=== PATIENT | male | born 1955 | race Caucasian/White ===

== ENCOUNTER 2016-04-28 18:00 | Emergency (ER) | payer OTHER ==
[2016-04-28] MEDS ORDERED: Sodium Chloride 0.9% 2.5 ML Syringe FLUSH PRN (18:25)
[2016-04-28] MEDS ORDERED: Sodium Chloride 0.9% 10 ML Syringe FLUSH PRN (18:25)
[2016-04-28] MEDS ORDERED: Sodium Chloride 0.9% 1,000 ML IV ONE (18:25)
--- NOTE | 2016-04-28 18:31 | EDM.PDOC ---
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 for which he is currently on Coumadin and also has a cardiac pacemaker this pacemaker was checked several months prior he states he' s been therapeutic on his Coumadin with no complications he presents today with a left-sided pain that is in the anterior ribs of the mid axillary line near the thoracicoabdominal area he denies any trauma he states it started earlier today and got progressively worse and dull achy he states he does have some shortness of breath which seems related to the pain and with deep inspiration he does not recall any trauma he has not had a history of shingles and denies palpitations diaphoresis or other concern Review of systems: As per history of present illness and below otherwise all systems reviewed and negative. Past medical history: As per history of present illness and as reviewed below otherwise noncontributory. Surgical history: As per history of present illness and as reviewed below otherwise noncontributory. Social history: No reported history of drug or alcohol abuse. Family history: As per history of present illness and as reviewed below otherwise noncontributory. Physical exam: HEENT: Atraumatic, normocephalic, pupils reactive, negative for conjunctival pallor or scleral icterus, mucous membranes moist, throat clear, neck supple, nontender, trachea midline. Lungs: Clear to auscultation, breath sounds equal bilaterally, chest nontender. Heart: S1S2, regular, negative for clicks, rubs, or JVD. Abdomen: Soft, nondistended, nontender. Negative for masses or hepatosplenomegaly. Negative for costovertebral tenderness. Pelvis: Stable nontender. Genitourinary: Deferred. Rectal: Deferred. Extremities: Atraumatic, negative for cords or calf pain. Neurovascular unremarkable. Neuro: Awake, alert, oriented. Cranial nerves II through XII unremarkable. Cerebellum unremarkable. Motor and sensory unremarkable throughout. Exam nonfocal. Diagnostics: CBC CMP troponin PT INR CT chest abdomen and pelvis PE protocol EKG Therapeutics: IV O2 monitor Impression: #1 dyspnea #2 lower chest pain etiology to be determined #3 history of major fibrillation #4 history of pacemaker Definitive disposition and diagnosis as appropriate pending reevaluation and review of above. - Related Data Allergies/ADRs: Allergies Allergy/AdvReac Type Severity Reaction Status Date / Time No Known Allergies Allergy Verified 04/28/16 18:04 Home Meds: Home Meds Digoxin 0.25 mg PO DAILY 12/26/14 [History] Escitalopram [Lexapro] 10 mg PO DAILY 12/26/14 [History] Losartan [Cozaar] 100 mg PO DAILY 12/26/14 [History] Metoprolol Tartrate 50 mg PO BID 12/26/14 [History] atorvaSTATin [Lipitor] 10 mg PO BEDTIME 12/26/14 [History] oxyCODONE 10 mg PO Q6H PRN #25 tablet 12/30/14 [Rx] Albuterol [Proventil HFA] 1 puff PO DAILY PRN 04/28/16 [History] Aspirin [Adult Low Dose Aspirin EC] 81 mg PO DAILY 04/28/16 [History] Past Medical History HEENT History: Reports: Impaired vision Cardiovascular History: Reports: Afib, High cholesterol, Hypertension, Pacemaker , Prior cardiac arrest Other Cardiovascular History: 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) Respiratory History: Reports: COPD Gastrointestinal History: Reports: None Genitourinary History: Reports: None Neurological History: Reports: None Psychiatric History: Reports: None Endocrine/Metabolic History: Reports: None Hematologic History: Reports: None Immunologic History: Reports: None Oncologic (Cancer) History: Reports: None Dermatologic History: Reports: None - Infectious Disease History Infectious Disease History: Reports: Chicken pox, Measles - Past Surgical History Head Surgeries/Procedures: Reports: None Other Musculoskeletal Surgeries/Procedures:: Fractures right leg (1969) and left ankles (1977) Social & Family History - Family History Family Medical History: Noncontributory - Tobacco Use Smoking Status *Q: Current Every Day Smoker Years of Tobacco use: 45 Packs/Tins Daily: 0.4 Second Hand Smoke Exposure: Yes - Caffeine Use Caffeine Use: Reports: Coffee - Recreational Drug Use Recreational Drug Use: No Course - Vital Signs Last Recorded V/S: Last Vital Signs Temp 36.9 C 04/28/16 20:31 Pulse 95 03/02/17 20:31 Resp 16 04/28/16 20:31 BP 133/77 04/28/16 20:31 Pulse Ox 94 L 04/28/16 20:31 - Orders/Labs/Meds Orders: Active Orders 24 hr Category Date Time Status Cardiac Monitoring [RC] . DIRECTED Care 04/28/16 18:24 Active EKG Documentation Completion [RC] STAT Care 04/28/16 18:24 Active Abdomen Pelvis w Cont [CT] Stat Exams 04/28/16 18:25 Taken Ang Chest [CT] Stat Exams 04/28/16 18:25 Taken Sodium Chloride 0.9% [Saline Flush] Med 04/28/16 18:25 Active 10 ml FLUSH ASDIRECTED PRN Sodium Chloride 0.9% [Saline Flush] Med 04/28/16 18:25 Active 2.5 ml FLUSH ASDIRECTED PRN Saline Lock Insert [OM.PC] Stat Oth 04/28/16 18:24 Ordered Medication Orders Sodium Chloride (Saline Flush) 10 ml FLUSH ASDIRECTED PRN PRN Reason: Keep Vein Open Sodium Chloride (Saline Flush) 2.5 ml FLUSH ASDIRECTED PRN PRN Reason: Keep Vein Open Labs: Laboratory Tests 04/28/16 04/28/16 04/28/16 Range/Units 18:40 18:40 18:40 WBC 8.54 (4.0-11.0) K/uL RBC 4.43 L (4.50-5.90) M/uL Hgb 13.9 (13.0-17.0) g/dL Hct 42.5 (38.0-50.0) % MCV 95.9 (80.0-98.0) fL MCH 31.4 (27.0-32.0) pg MCHC 32.7 (31.0-37.0) g/dL RDW Std Deviation 46.9 (28.0-62.0) fl RDW Coeff of Nimco 13 (11.0-15.0) % Plt Count 161 (150-400) K/uL MPV 9.90 (7.40-12.00) fL Neut % (Auto) 67.5 (48.0-80.0) % Lymph % (Auto) 19.6 (16.0-40.0) % [place] % (Auto) 12.1 (0.0-15.0) % Eos % (Auto) 0.7 (0.0-7.0) % Baso % (Auto) 0.1 (0.0-1.5) % Neut # 5.8 H (1.4-5.7) K/uL Lymph # 1.7 (0.6-2.4) K/uL [place] # 1.0 H (0.0-0.8) K/uL Eos # 0.1 (0.0-0.7) K/uL Baso # 0.0 (0.0-0.1) K/uL Nucleated RBC % 0.0 /100WBC Nucleated RBCs # 0 K/uL INR 2.09 H (0.86-1.11) Sodium 138 (136-146) mmol/L Potassium 4.2 (3.5-5.1) mmol/L Chloride 103 (98-110) mmol/L Carbon Dioxide 26 (21-31) mmol/L BUN 15 (6.0-23.0) mg/dL Creatinine 0.9 (0.6-1.5) mg/dL Est Cr Clr Drug Dosing 98.94 mL/min Estimated GFR (MDRD) > 60.0 ml/min Glucose 97 (60-110) mg/dL Calcium 9.5 (8.8-10.8) mg/dL Total Bilirubin 0.6 (0.1-1.5) mg/dL AST 18 (5-40) IU/L ALT 14 (8-54) IU/L Alkaline Phosphatase 65 (40-150) Troponin I (0.0-0.29) NG/ML B-Natriuretic Peptide (<100) PG/ML Total Protein 7.6 (6.0-8.0) g/dL Albumin 4.2 (3.4-4.8) g/dL Globulin 3.4 (2.0-3.5) g/dL Albumin/Globulin Ratio 1.2 L (1.3-2.8) Lipase 40 (7-80) U/L Urine Color Urine Appearance Urine pH (5.0-8.0) Ur Specific [place] (1.001-1.035) Urine Protein (NEGATIVE) mg/dL Urine Glucose (UA) (NEGATIVE) mg/dL Urine Ketones (NEGATIVE) mg/dL Urine Occult Blood (NEGATIVE) Urine Nitrite (NEGATIVE) Urine Bilirubin (NEGATIVE) Urine Urobilinogen (<2.0) EU/dL Ur Leukocyte Esterase (NEGATIVE) Urine RBC (0-2/HPF) Urine WBC (0-5/HPF) Ur Epithelial Cells (NONE-FEW) Urine Bacteria (NEGATIVE) 04/28/16 04/28/16 04/28/16 Range/Units 18:40 18:40 20:35 WBC (4.0-11.0) K/uL RBC (4.50-5.90) M/uL Hgb (13.0-17.0) g/dL Hct (38.0-50.0) % MCV (80.0-98.0) fL MCH (27.0-32.0) pg MCHC (31.0-37.0) g/dL RDW Std Deviation (28.0-62.0) fl RDW Coeff of Nimco (11.0-15.0) % Plt Count (150-400) K/uL MPV (7.40-12.00) fL Neut % (Auto) (48.0-80.0) % Lymph % (Auto) (16.0-40.0) % [place] % (Auto) (0.0-15.0) % Eos % (Auto) (0.0-7.0) % Baso % (Auto) (0.0-1.5) % Neut # (1.4-5.7) K/uL Lymph # (0.6-2.4) K/uL [place] # (0.0-0.8) K/uL Eos # (0.0-0.7) K/uL Baso # (0.0-0.1) K/uL Nucleated RBC % /100WBC Nucleated RBCs # K/uL INR (0.86-1.11) Sodium (136-146) mmol/L Potassium (3.5-5.1) mmol/L Chloride (98-110) mmol/L Carbon Dioxide (21-31) mmol/L BUN (6.0-23.0) mg/dL Creatinine (0.6-1.5) mg/dL Est Cr Clr Drug Dosing mL/min Estimated GFR (MDRD) ml/min Glucose (60-110) mg/dL Calcium (8.8-10.8) mg/dL Total Bilirubin (0.1-1.5) mg/dL AST (5-40) IU/L ALT (8-54) IU/L Alkaline Phosphatase (40-150) Troponin I < 0.10 (0.0-0.29) NG/ML B-Natriuretic Peptide 44 (<100) PG/ML Total Protein (6.0-8.0) g/dL Albumin (3.4-4.8) g/dL Globulin (2.0-3.5) g/dL Albumin/Globulin Ratio (1.3-2.8) Lipase (7-80) U/L Urine Color YELLOW Urine Appearance CLEAR Urine pH 5.5 (5.0-8.0) Ur Specific [place] <= 1.005 (1.001-1.035) Urine Protein NEGATIVE (NEGATIVE) mg/dL Urine Glucose (UA) NEGATIVE (NEGATIVE) mg/dL Urine Ketones NEGATIVE (NEGATIVE) mg/dL Urine Occult Blood MODERATE (NEGATIVE) Urine Nitrite NEGATIVE (NEGATIVE) Urine Bilirubin NEGATIVE (NEGATIVE) Urine Urobilinogen 0.2 (<2.0) EU/dL Ur Leukocyte Esterase NEGATIVE (NEGATIVE) Urine RBC 1-3 (0-2/HPF) Urine WBC NONE SEEN (0-5/HPF) Ur Epithelial Cells RARE (NONE-FEW) Urine Bacteria FEW (NEGATIVE) Meds: Medications Generic Name Dose Route Start Last Admin Trade Name Freq PRN Reason Stop Dose Admin Sodium Chloride 10 ml 04/28/16 18:25 Saline Flush FLUSH ASDIRECTED PRN Keep Vein Open Sodium Chloride 2.5 ml 04/28/16 18:25 Saline Flush FLUSH ASDIRECTED PRN Keep Vein Open Discontinued Medications Generic Name Dose Route Start Last Admin Trade Name Freq PRN Reason Stop Dose Admin Sodium Chloride 1,000 mls @ 999 mls/hr 04/28/16 18:25 04/28/16 18:43 Normal Saline IV 04/28/16 19:25 999 mls/hr STAT ONE Administration Iopamidol 100 ml 04/28/16 19:31 04/28/16 19:32 Isovue-370 (76%) IVPUSH 04/28/16 19:32 100 ml ONETIME STA Administration Departure - Departure Disposition: Home, Self-Care 01 Clinical Impression: Muscle spasm Forms: ED Department Discharge Additional Instructions: Continue [id number] symptomatic therapy is discussed If blister rash does appear antiviral therapy would be indicated Return if symptoms persist or worsen or new concerning symptomatology develops Followup with primary care as scheduled or as needed The following information is given to patients seen in the emergency department who are being discharged to home. This information is to outline your options for follow-up care. We provide all patients seen in our emergency department with a follow-up referral. The need for follow-up, as well as the timing and circumstances, are variable depending upon the specifics of your emergency department visit. If you don't have a primary care physician on staff, we will provide you with a referral. We always advise you to contact your personal physician following an emergency department visit to inform them of the circumstance of the visit and for follow-up with them and/or the need for any referrals to a consulting specialist. The emergency department will also refer you to a specialist when appropriate. This referral assures that you have the opportunity for follow-up care with a specialist. All of these measure are taken in an effort to provide you with optimal care, which includes your follow-up. Under all circumstances we always encourage you to contact your private physician who remains a resource for coordinating your care. When calling for follow-up care, please make the office aware that this follow-up is from your recent emergency room visit. If for any reason you are refused follow-up, please contact the [facility] emergency department at and asked to speak to the emergency department charge nurse. <Schuyler Swan - Last Filed: 04/28/16 21:23> ED HISTORY OF PRESENT ILLNESS - General Source of Information: Reports: Patient - History of Present Illness INITIAL COMMENTS - FREE TEXT/NARRATIVE: Has seen and examined the patient agree with history and physical exam above, patient did have some pain on deep inspiration earlier today however this is resolved, symptoms are consistent with muscle spasm and/or possibly early shingles. I did discuss with patient if Heather or lesions develop he should return or followup with primary care granddaughter viral treatment. He declines any pain medication he prefers to treat himself with Tylenol. No fever nausea vomiting chills sweats no chest pain shortness breath headache dizziness or palpitation no bowel or urine symptoms at this time HEENT grossly within normal limits Chest clear throughout nontender CV regular rate and rhythm Abdomen soft nontender bowel sounds in all 4 quadrants Extremities full range of motion strength 5 out of 5 no edema [employer] alert nonfocal Lab as below CT imaging chest abdomen pelvis with contrast negative for acute process Assessment Muscle spasm Cannot rule out early zoster sequela Chronic history of baseline Plan Patient declined pain medications Continue Tylenol as needed Return if symptoms persist or worsen Followup with primary care as needed ED ROS GENERAL - Review of Systems Review Of Systems: ROS reveals no pertinent complaints other than HPI. ED EXAM, GENERAL - Physical Exam Exam: See Below Departure - Departure Time of Disposition: 21:22 Condition: good
[2016-04-28 19:20] LABS: CHLORIDE,CL 103 mmol/L (98-110); SODIUM,NA 138 mmol/L (136-146)
[2016-04-28] MEDS ORDERED: Iopamidol 755 Mg/ML 100 ML Bottle IVPUSH STA (19:31)
[2016-04-28 21:37] VITALS: BP 116/78
--- NOTE | 2016-04-29 14:43 | CT ---
EXAM DATE: 04/28/16 PATIENT'S AGE: 60 Patient: PUSHPA CALL Facility: [place], [place] Site . Site : 1955 Study: CT Chest Angio [id number]/2/2017 8:11:33 PM Ordering Physician: Doctor Cosby Final Report: INDICATION: Chest pain and shortness of breath. Abdominal pain. CT CHEST, ABDOMEN, AND PELVIS WITH CONTRAST TECHNIQUE: Multidetector CT imaging was performed through the chest, abdomen, and pelvis following intravenous contrast administration using 100 mL Isovue 370. Coronal and sagittal reconstructions were generated. COMPARISON: 12/28/2014 CT abdomen and pelvis. FINDINGS: Lungs and airways: Mild to moderate paraseptal and centrilobular upper lung emphysema. Moderate bibasilar lung atelectasis and/or scarring, left greater than right. Central airways are patent. No hilar lymphadenopathy. Pleura and pleural spaces: Trace left pleural effusion. Heart and mediastinum: Normal heart size. No significant pericardial effusion. Cardiac pacemaker. No mediastinal lymphadenopathy. Vascular structures: Evaluation for pulmonary emboli is limited by suboptimal opacification of the pulmonary arterial tree and respiratory motion. No definite large or central pulmonary emboli are demonstrated. Smaller PEs could go undetected. Normal caliber thoracic and abdominal aorta. Mild to moderate aortoiliac atherosclerotic calcifications are noted. Chest wall and axillae: No mass or axillary lymphadenopathy. Liver and spleen: Within normal limits. Gallbladder and bile ducts: Cholelithiasis. No biliary dilation identified. Pancreas, adrenals, and retroperitoneum: Resolution of previously seen left psoas hematoma. No pancreatic or adrenal mass. No pathologically enlarged lymph nodes identified in the abdomen or pelvis. Kidneys, ureters, and urinary bladder: Several small left renal cysts, similar to the previous exam. No suspicious renal masses or hydronephrosis. No bladder mass or definite wall thickening. Gastrointestinal tract and peritoneum: Normal caliber bowel without wall thickening. No evidence for appendicitis. No free air, abscess, or significant free fluid. Reproductive organs: Borderline prostatic enlargement. No pelvic masses. Bones: Chronic-appearing mild compression fracture of T8. Mild spinal degenerative changes. Moderate right hip DJD. IMPRESSION: 1. Limited evaluation for pulmonary emboli. No definite pulmonary emboli are identified. 2. Moderate bibasilar lung atelectasis and/or scarring and trace left pleural effusion. 3. Mild to moderate upper lung emphysema. 4. No definite acute intra-abdominal findings. 5. Nonacute findings as detailed above. SKYLAR BELTRAN MD [employer] Dictated by Adriel Beltran MD @ 04/28/2016 8:51:38 PM Dictated by: Adriel Beltran MD @ 04/28/2016 20:54:07 (Electronic Signature) Report Signed by Proxy and Original Signed Document filed in the Medical Record. MTDD
--- NOTE | 2016-04-29 14:44 | CT ---
EXAM DATE: 04/28/16 PATIENT'S AGE: 60 Patient: PUSHPA CALL Facility: [place], [place] Site . Site : 1955 Study: CT Abdomen/Pelvis [id number]/2/2017 8:16:09 PM Ordering Physician: Lindsey Sepulveda Final Report: INDICATION: Chest pain and shortness of breath. Abdominal pain. CT CHEST, ABDOMEN, AND PELVIS WITH CONTRAST TECHNIQUE: Multidetector CT imaging was performed through the chest, abdomen, and pelvis following intravenous contrast administration using 100 mL Isovue 370. Coronal and sagittal reconstructions were generated. COMPARISON: 12/28/2014 CT abdomen and pelvis. FINDINGS: Lungs and airways: Mild to moderate paraseptal and centrilobular upper lung emphysema. Moderate bibasilar lung atelectasis and/or scarring, left greater than right. Central airways are patent. No hilar lymphadenopathy. Pleura and pleural spaces: Trace left pleural effusion. Heart and mediastinum: Normal heart size. No significant pericardial effusion. Cardiac pacemaker. No mediastinal lymphadenopathy. Vascular structures: Evaluation for pulmonary emboli is limited by suboptimal opacification of the pulmonary arterial tree and respiratory motion. No definite large or central pulmonary emboli are demonstrated. Smaller PEs could go undetected. Normal caliber thoracic and abdominal aorta. Mild to moderate aortoiliac atherosclerotic calcifications are noted. Chest wall and axillae: No mass or axillary lymphadenopathy. Liver and spleen: Within normal limits. Gallbladder and bile ducts: Cholelithiasis. No biliary dilation identified. Pancreas, adrenals, and retroperitoneum: Resolution of previously seen left psoas hematoma. No pancreatic or adrenal mass. No pathologically enlarged lymph nodes identified in the abdomen or pelvis. Kidneys, ureters, and urinary bladder: Several small left renal cysts, similar to the previous exam. No suspicious renal masses or hydronephrosis. No bladder mass or definite wall thickening. Gastrointestinal tract and peritoneum: Normal caliber bowel without wall thickening. No evidence for appendicitis. No free air, abscess, or significant free fluid. Reproductive organs: Borderline prostatic enlargement. No pelvic masses. Bones: Chronic-appearing mild compression fracture of T8. Mild spinal degenerative changes. Moderate right hip DJD. IMPRESSION: 1. Limited evaluation for pulmonary emboli. No definite pulmonary emboli are identified. 2. Moderate bibasilar lung atelectasis and/or scarring and trace left pleural effusion. 3. Mild to moderate upper lung emphysema. 4. No definite acute intra-abdominal findings. 5. Nonacute findings as detailed above. SKYLAR BELTRAN MD [employer] [facility] [employer] Dictated by Adriel Beltran MD @ 04/28/2016 8:51:38 PM Dictated by: Adriel Beltran MD @ 04/28/2016 20:59:50 (Electronic Signature) Report Signed by Proxy and Original Signed Document filed in the Medical Record. MTDD
== END 2016-04-28 21:34 | disposition home or self-care (01) ==
LOC: MW.ED 18:00
DX: R07.89 Other chest pain (principal); M62.838 Other muscle spasm; I48.91 Unspecified atrial fibrillation; E78.00 Pure hypercholesterolemia, unspecified; I10 Essential (primary) hypertension; F17.210 Nicotine dependence, cigarettes, uncomplicated; Z79.82 Long term (current) use of aspirin; Z79.899 Other long term (current) drug therapy
CPT/HCPCS: 36415; 71275; 74177; 80053; 81001; 83690; 83880; 84484; 85025; 85610; 93005; 96360; 99285; J7040; Q9967; 99284

== ENCOUNTER 2017-08-14 19:42 | Emergency (ER) | payer OTHER ==
[2017-08-14] MEDS ORDERED: Ondansetron 4 MG/2 ML SDV IVPUSH ONE (19:51)
--- NOTE | 2017-08-14 19:52 | EDM.PDOC ---
ED HPI GENERAL MEDICAL PROBLEM - General Chief Complaint: Abdominal Pain Stated Complaint: ABDOMINAL PAIN Time Seen by Provider: 08/14/17 19:51 Source of Information: Reports: Patient - History of Present Illness INITIAL COMMENTS - FREE TEXT/NARRATIVE: HISTORY AND PHYSICAL: History of present illness: [patrient [resents w RLQ pain 8/10 increaseing in severity, pos f/n/v/c/s/ ] Review of systems: As per history of present illness and below otherwise all systems reviewed and negative. Past medical history: As per history of present illness and as reviewed below otherwise noncontributory. Surgical history: As per history of present illness and as reviewed below otherwise noncontributory. Social history: No reported history of drug or alcohol abuse. Family history: As per history of present illness and as reviewed below otherwise noncontributory. Physical exam: HEENT: Atraumatic, normocephalic, pupils reactive, negative for conjunctival pallor or scleral icterus, mucous membranes moist, throat clear, neck supple, nontender, trachea midline. Lungs: Clear to auscultation, breath sounds equal bilaterally, chest nontender. Heart: S1S2, regular, negative for clicks, rubs, or JVD. Abdomen: Soft, nondistended, nontender. Negative for masses or hepatosplenomegaly. Negative for costovertebral tenderness. Pelvis: Stable nontender. Genitourinary: Deferred. Rectal: Deferred. Extremities: Atraumatic, negative for cords or calf pain. Neurovascular unremarkable. Neuro: Awake, alert, oriented. Cranial nerves II through XII unremarkable. Cerebellum unremarkable. Motor and sensory unremarkable throughout. Exam nonfocal. Diagnostics: [CBC CMP troponin lipase UA blood cultures EKG Chest [address] abdomen pelvis with contrast ordered however GFR returned less than 60 radiology is recommending without contrast CT abdomen pelvis without contrast ordered secondary to above ] Therapeutics: [Saline 1 25 mL per hour Zofran 8 mg IV morphine 2 mg IV 1 g rocephine IV Impression: acute appe Definitive disposition and diagnosis as appropriate pending reevaluation and review of above. Abdomen Pain Score (Numeric/FACES): 10 - Related Data Allergies Allergy/AdvReac Type Severity Reaction Status Date / Time No Known Allergies Allergy Verified 08/14/17 19:53 Home Meds: Home Meds Digoxin 0.25 mg PO DAILY 12/26/14 [History] Escitalopram [Lexapro] 10 mg PO DAILY 12/26/14 [History] Losartan [Cozaar] 100 mg PO DAILY 12/26/14 [History] Metoprolol Tartrate 50 mg PO BID 12/26/14 [History] atorvaSTATin [Lipitor] 10 mg PO BEDTIME 12/26/14 [History] Albuterol [Proventil HFA] 1 puff PO DAILY PRN 04/28/16 [History] Aspirin [Adult Low Dose Aspirin EC] 81 mg PO DAILY 04/28/16 [History] Tiotropium Br/Olodaterol HCl [Stiolto Respimat Inhal [place]] 2 inhalation IH DAILY 08/14/17 [History] Warfarin Sodium 5 mg PO DAILY 08/14/17 [History] Past Medical History HEENT History: Reports: Impaired Vision Cardiovascular History: Reports: Afib, High Cholesterol, Hypertension, Pacemaker , Prior Cardiac Arrest Other Cardiovascular History: 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) Respiratory History: Reports: COPD Gastrointestinal History: Reports: None Genitourinary History: Reports: None Neurological History: Reports: None Psychiatric History: Reports: None Endocrine/Metabolic History: Reports: None Hematologic History: Reports: None Immunologic History: Reports: None Oncologic (Cancer) History: Reports: None Dermatologic History: Reports: None - Infectious Disease History Infectious Disease History: Reports: Chicken Pox, Measles - Past Surgical History Head Surgeries/Procedures: Reports: None Other Musculoskeletal Surgeries/Procedures:: Fractures right leg (1969) and left ankles (1977) Social & Family History - Family History Family Medical History: Noncontributory - Caffeine Use Caffeine Use: Reports: Coffee ED ROS GENERAL - Review of Systems Review Of Systems: See Below ED EXAM, GENERAL - Physical Exam Exam: See Below Course - Vital Signs Last Recorded V/S: Last Vital Signs Temp 96.5 F 08/14/17 19:49 Pulse 71 08/14/17 19:49 Resp 18 08/14/17 19:49 BP 108/74 08/14/17 19:49 Pulse Ox 94 L 08/14/17 19:49 - Orders/Labs/Meds Orders: Active Orders 24 hr Category Date Time Status EKG Documentation Completion [RC] STAT Care 08/14/17 20:07 Active Notify Provider Consults [RC] ASDIRECTED Care 08/14/17 22:08 Ordered Consult to Physician [CONS] Stat Cons 08/14/17 22:07 Ordered Abdomen Pelvis wo Cont [CT] Stat Exams 08/14/17 20:54 Taken CULTURE BLOOD [BC] Stat Lab 08/14/17 20:12 Received CULTURE BLOOD [BC] Stat Lab 08/14/17 20:31 Received UA W/MICROSCOPIC [URIN] Stat Lab 08/14/17 19:51 Ordered Sodium Chloride 0.9% [Normal Saline] 1,000 ml Med 08/14/17 20:00 Active IV STAT cefTRIAXone [Rocephin in Dextrose,Iso-Osm 1 GM/50 ML] 1 Med 08/14/17 21:55 Active gm Premix Bag 1 bag IV ONETIME Blood Culture x2 Reflex Set [OM.PC] Stat Oth 08/14/17 20:04 Ordered Medication Orders Sodium Chloride (Normal Saline) 1,000 mls @ 125 mls/hr IV STAT DEA Last Admin: 08/14/17 20:15 Dose: 125 mls/hr Ceftriaxone Sodium/Dextrose 1 (gm/ Premix) 50 mls @ 100 mls/hr IV ONETIME ONE Stop: 08/14/17 22:24 Last Admin: 08/14/17 22:03 Dose: 100 mls/hr Labs: Laboratory Tests 08/14/17 08/14/17 08/14/17 Range/Units 19:40 19:40 19:50 WBC 14.83 H (4.0-11.0) K/uL RBC 4.44 L (4.50-5.90) M/uL Hgb 14.4 (13.0-17.0) g/dL Hct 41.7 (38.0-50.0) % MCV 93.9 (80.0-98.0) fL MCH 32.4 H (27.0-32.0) pg MCHC 34.5 (31.0-37.0) g/dL RDW Std Deviation 44.9 (28.0-62.0) fl RDW Coeff of [place] 13 (11.0-15.0) % Plt Count 198 (150-400) K/uL MPV 9.50 (7.40-12.00) fL Neut % (Auto) 77.4 (48.0-80.0) % Lymph % (Auto) 14.8 L (16.0-40.0) % [place] % (Auto) 7.6 (0.0-15.0) % Eos % (Auto) 0.1 (0.0-7.0) % Baso % (Auto) 0.1 (0.0-1.5) % Neut # (Auto) 11.5 H (1.4-5.7) K/uL Lymph # (Auto) 2.2 (0.6-2.4) K/uL [place] # (Auto) 1.1 H (0.0-0.8) K/uL Eos # (Auto) 0.0 (0.0-0.7) K/uL Baso # (Auto) 0.0 (0.0-0.1) K/uL Nucleated RBC % 0.0 /100WBC Nucleated RBCs # 0 K/uL INR 3.57 Sodium 132 L (136-148) mmol/L Potassium 4.1 (3.5-5.1) mmol/L Chloride 95 L (98-107) mmol/L Carbon Dioxide 27.1 (21.0-32.0) mmol/L BUN 19 H (7.0-18.0) mg/dL Creatinine 1.3 (0.8-1.3) mg/dL Est Cr Clr Drug Dosing 55.25 mL/min Estimated GFR (MDRD) 55.6 ml/min Glucose 142 H (74-106) mg/dL Calcium 9.2 (8.5-10.1) mg/dL Total Bilirubin 0.6 (0.2-1.0) mg/dL AST 20 (15-37) IU/L ALT 16 (14-63) IU/L Alkaline Phosphatase 78 (46-116) U/L Troponin I < 0.050 (0.000-0.056) ng/mL Total Protein 7.6 (6.4-8.2) g/dL Albumin 3.7 (3.4-5.0) g/dL Globulin 3.9 H (2.0-3.5) g/dL Albumin/Globulin Ratio 1.0 L (1.3-2.8) Lipase 120 (73-393) U/L Meds: Medications Generic Name Dose Route Start Last Admin Trade Name Freq PRN Reason Stop Dose Admin Sodium Chloride 1,000 mls @ 125 mls/hr 08/14/17 20:00 08/14/17 20:15 Normal Saline IV 125 mls/hr STAT DEA Administration Ceftriaxone Sodium/Dextrose 1 50 mls @ 100 mls/hr 08/14/17 21:55 08/14/17 22: 03 gm/ Premix IV 08/14/17 22:24 100 mls/hr ONETIME ONE Administration Discontinued Medications Generic Name Dose Route Start Last Admin Trade Name John PRN Reason Stop Dose Admin Morphine Sulfate 2 mg 08/14/17 20:04 08/14/17 20:17 Morphine IVPUSH 08/14/17 20:05 2 mg ONETIME ONE Administration Ondansetron HCl 8 mg 08/14/17 19:51 08/14/17 20:15 Zofran IVPUSH 08/14/17 19:52 8 mg ONETIME ONE Administration Departure - Departure Time of Disposition: 22:09 Disposition: Still A Patient 30 Condition: Poor Clinical Impression: Acute appendicitis - Discharge Information Referrals: PCP,None [Primary Care Provider] - Forms: ED Department Discharge - My Orders Last 24 Hours: My Active Orders 08/14/17 19:51 UA W/MICROSCOPIC [URIN] Stat 08/14/17 20:00 Sodium Chloride 0.9% [Normal Saline] 1,000 ml IV STAT 08/14/17 20:04 Blood Culture x2 Reflex Set [OM.PC] Stat 08/14/17 20:07 EKG Documentation Completion [RC] STAT 08/14/17 20:12 CULTURE BLOOD [BC] Stat 08/14/17 20:31 CULTURE BLOOD [BC] Stat 08/14/17 20:54 Abdomen Pelvis wo Cont [CT] Stat 08/14/17 21:55 cefTRIAXone [Rocephin in Dextrose,Iso-Osm 1 GM/50 ML] 1 gm Premix Bag 1 bag IV ONETIME 08/14/17 22:07 Consult to Physician [CONS] Stat 08/14/17 22:08 Notify Provider Consults [RC] ASDIRECTED - Assessment/Plan Last 24 Hours: My Active Orders 08/14/17 19:51 UA W/MICROSCOPIC [URIN] Stat 08/14/17 20:00 Sodium Chloride 0.9% [Normal Saline] 1,000 ml IV STAT 08/14/17 20:04 Blood Culture x2 Reflex Set [OM.PC] Stat 08/14/17 20:07 EKG Documentation Completion [RC] STAT 08/14/17 20:12 CULTURE BLOOD [BC] Stat 08/14/17 20:31 CULTURE BLOOD [BC] Stat 08/14/17 20:54 Abdomen Pelvis wo Cont [CT] Stat 08/14/17 21:55 cefTRIAXone [Rocephin in Dextrose,Iso-Osm 1 GM/50 ML] 1 gm Premix Bag 1 bag IV ONETIME 08/14/17 22:07 Consult to Physician [CONS] Stat 08/14/17 22:08 Notify Provider Consults [RC] ASDIRECTED
[2017-08-14] MEDS ORDERED: Sodium Chloride 0.9% 1,000 ML IV SCH (20:00)
[2017-08-14] MEDS ORDERED: Morphine 2 MG/ML Syringe IVPUSH ONE (20:04)
[2017-08-14 20:29] LABS: CHLORIDE,CL 95 mmol/L (98-107); SODIUM,NA 132 mmol/L (136-148)
[2017-08-14] MEDS ORDERED: cefTRIAXone 1 GM in Premix Bag 1 BAG IV ONE (21:55)
[2017-08-14 22:20] VITALS: BP 145/62
[2017-08-14] MEDS ORDERED: Piperacillin/Tazobactam 3.375 GM in Sodium Chloride 0.9% 50 ML IV ONE (22:42)
--- NOTE | 2017-08-14 22:42 | PCM.CONS ---
H&P History of Present Illness - General Date of Service: 08/14/17 Source of Information: Patient History Limitations: Reports: No Limitations - History of Present Illness Initial Comments - Free Text/Narative: Patient is a 62 year old male with a PMHx significant for COPD(current 1 pk/day smoker), pacemaker/defibrillator with history of afib and ablation on coumadin who presented with 3 days of abdominal pain. He states that the pain became more severe today and was located in the lower abdomen. He then developed nausea and vomiting. He presented to the ED and WBC was 14K. CT abdomen pelvis showed acute appendicitis with no evidence of rupture. His INR is 3.5. Abdomen Pain Score (Numeric/FACES): 10 - Related Data Allergies/Adverse Reactions: Allergies Allergy/AdvReac Type Severity Reaction Status Date / Time No Known Allergies Allergy Verified 08/14/17 19:53 Home Medications: Home Meds Digoxin 0.25 mg PO DAILY 12/26/14 [History] Escitalopram [Lexapro] 10 mg PO DAILY 12/26/14 [History] Losartan [Cozaar] 100 mg PO DAILY 12/26/14 [History] Metoprolol Tartrate 50 mg PO BID 12/26/14 [History] atorvaSTATin [Lipitor] 10 mg PO BEDTIME 12/26/14 [History] Albuterol [Proventil HFA] 1 puff PO DAILY PRN 04/28/16 [History] Aspirin [Adult Low Dose Aspirin EC] 81 mg PO DAILY 04/28/16 [History] Tiotropium Br/Olodaterol HCl [Stiolto Respimat Inhal [place]] 2 inhalation IH DAILY 08/14/17 [History] Warfarin Sodium 5 mg PO DAILY 08/14/17 [History] Past Medical History HEENT History: Reports: Impaired Vision Cardiovascular History: Reports: Afib, High Cholesterol, Hypertension, Pacemaker , Prior Cardiac Arrest Other Cardiovascular History: 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) Respiratory History: Reports: COPD Gastrointestinal History: Reports: None Genitourinary History: Reports: None Neurological History: Reports: None Psychiatric History: Reports: None Endocrine/Metabolic History: Reports: None Hematologic History: Reports: None Immunologic History: Reports: None Oncologic (Cancer) History: Reports: None Dermatologic History: Reports: None - Infectious Disease History Infectious Disease History: Reports: Chicken Pox, Measles - Past Surgical History Head Surgeries/Procedures: Reports: None Other Musculoskeletal Surgeries/Procedures:: Fractures right leg (1969) and left ankles (1977) Social & Family History - Family History Family Medical History: Noncontributory - Tobacco Use Smoking Status *Q: Current Every Day Smoker Years of Tobacco use: 40 Packs/Tins Daily: 1 - Caffeine Use Caffeine Use: Reports: Coffee - Recreational Drug Use Recreational Drug Use: No H&P Review of Systems - Review of Systems: Review Of Systems: ROS reveals no pertinent complaints other than HPI. Exam - Exam Exam: See Below - Vital Signs Vital Signs: Last Vital Signs Temp 35.8 C 08/14/17 19:49 Pulse 71 08/14/17 19:49 Resp 19 08/14/17 22:00 BP 145/62 H 08/14/17 22:00 Pulse Ox 93 L 08/14/17 22:00 Weight: 68.039 kg - Exam General: Alert, Oriented, Mild Distress HEENT: Conjunctiva Clear, Posterior Pharynx Clear Neck: Supple, Trachea Midline Lungs: Clear to Auscultation, Normal Respiratory Effort Cardiovascular: Regular Rate, Regular Rhythm GI/Abdominal Exam: Soft, No Distention, No Mass, Guarding (RLQ), Rebound (RLQ), Tender (RLQ) - Patient Data Lab Results Last 24 hrs: Laboratory Results - last 24 hr 08/14/17 08/14/17 08/14/17 Range/Units 19:40 19:40 19:50 WBC 14.83 H (4.0-11.0) K/uL RBC 4.44 L (4.50-5.90) M/uL Hgb 14.4 (13.0-17.0) g/dL Hct 41.7 (38.0-50.0) % MCV 93.9 (80.0-98.0) fL MCH 32.4 H (27.0-32.0) pg MCHC 34.5 (31.0-37.0) g/dL RDW Std Deviation 44.9 (28.0-62.0) fl RDW Coeff of [place]co 13 (11.0-15.0) % Plt Count 198 (150-400) K/uL MPV 9.50 (7.40-12.00) fL Neut % (Auto) 77.4 (48.0-80.0) % Lymph % (Auto) 14.8 L (16.0-40.0) % [place] % (Auto) 7.6 (0.0-15.0) % Eos % (Auto) 0.1 (0.0-7.0) % Baso % (Auto) 0.1 (0.0-1.5) % Neut # (Auto) 11.5 H (1.4-5.7) K/uL Lymph # (Auto) 2.2 (0.6-2.4) K/uL [place] # (Auto) 1.1 H (0.0-0.8) K/uL Eos # (Auto) 0.0 (0.0-0.7) K/uL Baso # (Auto) 0.0 (0.0-0.1) K/uL Nucleated RBC % 0.0 /100WBC Nucleated RBCs # 0 K/uL INR 3.57 Sodium 132 L (136-148) mmol/L Potassium 4.1 (3.5-5.1) mmol/L Chloride 95 L (98-107) mmol/L Carbon Dioxide 27.1 (21.0-32.0) mmol/L BUN 19 H (7.0-18.0) mg/dL Creatinine 1.3 (0.8-1.3) mg/dL Est Cr Clr Drug Dosing 55.25 mL/min Estimated GFR (MDRD) 55.6 ml/min Glucose 142 H (74-106) mg/dL Calcium 9.2 (8.5-10.1) mg/dL Total Bilirubin 0.6 (0.2-1.0) mg/dL AST 20 (15-37) IU/L ALT 16 (14-63) IU/L Alkaline Phosphatase 78 (46-116) U/L Troponin I < 0.050 (0.000-0.056) ng/mL Total Protein 7.6 (6.4-8.2) g/dL Albumin 3.7 (3.4-5.0) g/dL Globulin 3.9 H (2.0-3.5) g/dL Albumin/Globulin Ratio 1.0 L (1.3-2.8) Lipase 120 (73-393) U/L Urine Color Urine Appearance Urine pH (5.0-8.0) Ur Specific [place] (1.001-1.035) Urine Protein (NEGATIVE) mg/dL Urine Glucose (UA) (NEGATIVE) mg/dL Urine Ketones (NEGATIVE) mg/dL Urine Occult Blood (NEGATIVE) Urine Nitrite (NEGATIVE) Urine Bilirubin (NEGATIVE) Urine Urobilinogen (<2.0) EU/dL Ur Leukocyte Esterase (NEGATIVE) Urine RBC (0-2/HPF) Urine WBC (0-5/HPF) Ur Epithelial Cells (NONE-FEW) Calcium Oxalate Crystal (NEGATIVE) Urine Bacteria (NEGATIVE) Urine Mucus (NONE-MOD) 08/14/17 Range/Units 20:30 WBC (4.0-11.0) K/uL RBC (4.50-5.90) M/uL Hgb (13.0-17.0) g/dL Hct (38.0-50.0) % MCV (80.0-98.0) fL MCH (27.0-32.0) pg MCHC (31.0-37.0) g/dL RDW Std Deviation (28.0-62.0) fl RDW Coeff of [place] (11.0-15.0) % Plt Count (150-400) K/uL MPV (7.40-12.00) fL Neut % (Auto) (48.0-80.0) % Lymph % (Auto) (16.0-40.0) % [place] % (Auto) (0.0-15.0) % Eos % (Auto) (0.0-7.0) % Baso % (Auto) (0.0-1.5) % Neut # (Auto) (1.4-5.7) K/uL Lymph # (Auto) (0.6-2.4) K/uL [place] # (Auto) (0.0-0.8) K/uL Eos # (Auto) (0.0-0.7) K/uL Baso # (Auto) (0.0-0.1) K/uL Nucleated RBC % /100WBC Nucleated RBCs # K/uL INR Sodium (136-148) mmol/L Potassium (3.5-5.1) mmol/L Chloride (98-107) mmol/L Carbon Dioxide (21.0-32.0) mmol/L BUN (7.0-18.0) mg/dL Creatinine (0.8-1.3) mg/dL Est Cr Clr Drug Dosing mL/min Estimated GFR (MDRD) ml/min Glucose (74-106) mg/dL Calcium (8.5-10.1) mg/dL Total Bilirubin (0.2-1.0) mg/dL AST (15-37) IU/L ALT (14-63) IU/L Alkaline Phosphatase (46-116) U/L Troponin I (0.000-0.056) ng/mL Total Protein (6.4-8.2) g/dL Albumin (3.4-5.0) g/dL Globulin (2.0-3.5) g/dL Albumin/Globulin Ratio (1.3-2.8) Lipase (73-393) U/L Urine Color DARK YELLOW Urine Appearance CLEAR Urine pH 5.5 (5.0-8.0) Ur Specific [place] 1.025 (1.001-1.035) Urine Protein TRACE (NEGATIVE) mg/dL Urine Glucose (UA) NEGATIVE (NEGATIVE) mg/dL Urine Ketones 15 H (NEGATIVE) mg/dL Urine Occult Blood LARGE H (NEGATIVE) Urine Nitrite NEGATIVE (NEGATIVE) Urine Bilirubin SMALL H (NEGATIVE) Urine Urobilinogen 1.0 (<2.0) EU/dL Ur Leukocyte Esterase NEGATIVE (NEGATIVE) Urine RBC 6-10 (0-2/HPF) Urine WBC 0-2 (0-5/HPF) Ur Epithelial Cells OCCASIONAL (NONE-FEW) Calcium Oxalate Crystal MODERATE (NEGATIVE) Urine Bacteria FEW (NEGATIVE) Urine Mucus LIGHT (NONE-MOD) Result Diagrams: 08/14/17 19:40 08/14/17 19:40 Consult PN Assessment/Plan Procedures: Procedures ASSAY OF DIGOXIN TOTAL (03/14/16) ASSAY OF FREE THYROXINE (03/14/17) ASSAY OF LIPASE (04/28/16) ASSAY OF NATRIURETIC PEPTIDE (04/28/16) ASSAY OF TROPONIN QUANT (04/28/16) ASSAY THYROID STIM HORMONE (03/14/17) C-REACTIVE PROTEIN (12/28/14) COMPLETE CBC AUTOMATED (12/10/13) COMPLETE CBC W/AUTO DIFF WBC (03/14/17) COMPREHEN METABOLIC PANEL (03/14/17) CT ABD & PELV W/CONTRAST (04/28/16) CT ABD & PELVIS W/O CONTRAST (12/28/14) CT ANGIOGRAPHY CHEST (04/28/16) DXA BONE DENSITY AXIAL (03/17/17) ELECTROCARDIOGRAM TRACING (04/28/16) EMERGENCY DEPT VISIT (04/28/16) EMERGENCY DEPT VISIT (12/28/14) EMERGENCY DEPT VISIT (12/26/14) EVALUATION OF WHEEZING (07/14/14) HYDRATION IV INFUSION INIT (04/28/16) LIPID PANEL (03/14/17) PROTHROMBIN TIME (03/06/17) ROUTINE VENIPUNCTURE (03/14/17) THER/PROPH/DIAG INJ SC/IM (12/28/14) THROMBOPLASTIN TIME PARTIAL (12/28/14) URINALYSIS AUTO W/SCOPE (04/28/16) X-RAY EXAM OF HIP (12/26/14) Problem List Initiated/Reviewed/Updated: Yes Plan: We have no bed availability and the patient will need to have surgery. I called [facility] and they have accepted the patient.
[2017-08-14] MEDS ORDERED: HYDROmorphone 1 MG/ML Syringe IVPUSH ONE (23:30)
--- NOTE | 2017-08-15 09:12 | CT ---
EXAM DATE: 08/14/17 PATIENT'S AGE: 62 Patient: PUSHPA CALL Facility: [place], [place] Site . Site : 1955 Study: CT Abdomen/Pelvis [id number] 9:37:26 PM Ordering Physician: Juan Payan Final Report: INDICATION: abdomen pelvis pain, nausea CT ABDOMEN AND PELVIS WITHOUT CONTRAST TECHNIQUE: Multidetector CT imaging was performed through the abdomen and pelvis without intravenous contrast administration. Coronal and sagittal reconstructions were generated. COMPARISON: None. FINDINGS: Lower chest: Minimal basilar atelectasis. Liver: Within normal limits. Gallbladder and bile ducts: Cholelithiasis without evidence of cholecystitis. No biliary dilation identified. Pancreas: Unremarkable. Spleen: Normal. Adrenals: No nodules or masses. Kidneys, ureters, and urinary bladder: No hydronephrosis or definite urinary tract stones. Nondistended urinary bladder with resultant wall prominence. No bladder mass or definite wall thickening. Gastrointestinal tract: Normal caliber bowel without wall thickening. There is a small appendicolith in the proximal appendiceal lumen distal to which the appendix is enlarged and measures up to 10 millimeters in diameter with wall thickening and pronounced periappendiceal fat stranding, consistent with appendicitis. Vascular structures: Mild atherosclerotic vascular calcifications. Peritoneum: Small amount of fluid in the right pericolic gutter. No loculated collection suggestive of abscess. No free air identified. Lymph nodes: No pathologically enlarged nodes identified. Reproductive organs: No pelvic masses. Bones: Mild spinal degenerative changes. 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 IMPRESSION: 1. Appendicitis. No definite appendiceal perforation or abscess. 2. Nonacute additional findings as detailed above. Results were called to Dr. Martinez at 9:50 p.m. on 08/14/2017. SKYLAR BELTRAN MD [employer] Dictated by Adriel Beltran MD @ 08/14/2017 9:53:35 PM Dictated by: Adriel Beltran MD @ 08/14/2017 21:53:54 (Electronic Signature) Report Signed by Proxy. [facility]
== END 2017-08-15 00:01 ==
LOC: MW.ED 19:42
DX: K35.80 Unspecified acute appendicitis (principal); I48.91 Unspecified atrial fibrillation; E78.00 Pure hypercholesterolemia, unspecified; I10 Essential (primary) hypertension; J44.9 Chronic obstructive pulmonary disease, unspecified; Z79.899 Other long term (current) drug therapy; Z79.82 Long term (current) use of aspirin; Z79.01 Long term (current) use of anticoagulants
CPT/HCPCS: 36415; 74176; 80053; 81001; 83690; 84484; 85025; 85610; 87040; 93005; 96361; 96365; 96367; 96375; 99285; J0696; J1170; J2270; J2405; J2543; J7040; J7050; 99283

== ENCOUNTER 2020-03-31 14:04 | Emergency (ER) | payer MEDICARE, BC ==
--- NOTE | 2020-03-31 14:12 | EDM.PDOC ---
ED HPI GENERAL MEDICAL PROBLEM - General Chief Complaint: Cardiovascular Problem Stated Complaint: DIFIBULATOR Time Seen by Provider: 03/31/20 14:10 Source of Information: Reports: Patient History Limitations: Reports: No Limitations - History of Present Illness INITIAL COMMENTS - FREE TEXT/NARRATIVE: 64-year-old male with history of sudden cardiac , Afib on coumadin, [employer] AICD placed in November 2009 presents for possible AICD malfunction. There has been beeping over the last 2 nights. His quality control scientist is Dr. Maco Crenshaw in [place], he was instructed to come to the ER today from Dr. Maco Crenshaw's staff for interrogation to see if it is malfunctioning from the leads or battery depletion. He has three leads, of which 2 are [employer] leads and [address] [employer] lead. He has no symptoms. patient denies fever, chills, headache, chest pain, shortness of breath, abdominal pain, focal numbness or weakness. ROS: A 10-point review of systems, other than pertinent positives and negatives as stated per HPI, is otherwise negative Past medical history: No additional pertinent history Past Surgical history: No additional pertinent history Social history: No additional pertinent history Family history: No additional pertinent history PHYSICAL EXAM General: AOx4, GCS = 15, No distress HEENT: dry mucous membrane Neck: supple, no meningismus, no Kernig or Brudzinski Cardiac: S1S2 RRR, AICD nontender. Respiratory: CTAB, no crackles or rales, no wheezing Abdomen: Soft, nontender, no rebound or guarding, nondistended, no pulsatile mass. Back: nontender Musculoskeletal: NVI distally, no deformity Neuro: No focal deficits, CN 2 - 12 WNL. - Related Data Allergies Allergy/AdvReac Type Severity Reaction Status Date / Time No Known Allergies Allergy Verified 03/31/20 14:48 Home Meds: Home Meds Digoxin 0.25 mg PO DAILY 12/26/14 [History] Escitalopram [Lexapro] 10 mg PO DAILY 12/26/14 [History] Losartan [Cozaar] 100 mg PO DAILY 12/26/14 [History] Metoprolol Tartrate 50 mg PO BID 12/26/14 [History] atorvaSTATin [Lipitor] 10 mg PO BEDTIME 12/26/14 [History] Albuterol [Proventil HFA] 1 puff PO DAILY PRN 04/28/16 [History] Aspirin [Adult Low Dose Aspirin EC] 81 mg PO DAILY 04/28/16 [History] Tiotropium Br/Olodaterol HCl [Stiolto Respimat Inhal [place]] 2 inhalation IH DAILY 08/14/17 [History] Warfarin Sodium 5 mg PO DAILY 08/14/17 [History] Past Medical History HEENT History: Reports: Impaired Vision Cardiovascular History: Reports: Afib, High Cholesterol, Hypertension, Pacemaker, Prior Cardiac Arrest Other Cardiovascular History: 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) Respiratory History: Reports: COPD Gastrointestinal History: Reports: None Genitourinary History: Reports: None Neurological History: Reports: None Psychiatric History: Reports: None Endocrine/Metabolic History: Reports: None Hematologic History: Reports: None Immunologic History: Reports: None Oncologic (Cancer) History: Reports: None Dermatologic History: Reports: None - Infectious Disease History Infectious Disease History: Reports: Chicken Pox, Measles - Past Surgical History Head Surgeries/Procedures: Reports: None Other Musculoskeletal Surgeries/Procedures:: Fractures right leg (1969) and left ankles (1977) Social & Family History - Family History Family Medical History: No Pertinent Family History - Caffeine Use Caffeine Use: Reports: Coffee ED ROS GENERAL - Review of Systems Review Of Systems: See Below (see dictation) ED EXAM, GENERAL - Physical Exam Exam: See Below (see dictation) #1 Interpretation EKG Interpretation Comments: Heart rate = 70 bpm, dual paced rhythm, normal sinus rhythm, normal QRS interval, no STEMI. EKG and rhythm strip interpreted by me at 1452 Course - Vital Signs Last Recorded V/S: Last Vital Signs Temp 97.2 F 03/31/20 14:50 Pulse 71 03/31/20 14:50 Resp 16 03/31/20 14:50 BP 146/91 H 03/31/20 14:50 Pulse Ox 97 03/31/20 14:50 - Orders/Labs/Meds Orders: Active Orders 24 hr Category Date Time Status Cardiac Monitoring [RC] . DIRECTED Care 03/31/20 14:24 Active Communication Order [RC] STAT Care 03/31/20 14:18 Active EKG 12 Lead [EKG Documentation Completion] [RC] STAT Care 03/31/20 14:18 Active COMPREHENSIVE METABOLIC PN,CMP [CHEM] Stat Lab 03/31/20 16:30 Received TROPONIN I [CHEM] Stat Lab 03/31/20 16:30 Received Labs: Laboratory Tests 03/31/20 03/31/20 Range/Units 16:30 16:30 WBC 6.34 (4.0-11.0) K/uL RBC 4.44 L (4.50-5.90) M/uL Hgb 14.2 (13.0-17.0) g/dL Hct 43.2 (38.0-50.0) % MCV 97.3 (80.0-98.0) fL MCH 32.0 (27.0-32.0) pg MCHC 32.9 (31.0-37.0) g/dL RDW Std Deviation 45.9 (28.0-62.0) fl RDW Coeff of Nimco 13 (11.0-15.0) % Plt Count 175 (150-400) K/uL MPV 9.50 (7.40-12.00) fL Neut % (Auto) 59.3 (48.0-80.0) % Lymph % (Auto) 31.1 (16.0-40.0) % [place] % (Auto) 8.0 (0.0-15.0) % Eos % (Auto) 1.3 (0.0-7.0) % Baso % (Auto) 0.3 (0.0-1.5) % Neut # (Auto) 3.8 (1.4-5.7) K/uL Lymph # (Auto) 2.0 (0.6-2.4) K/uL [place] # (Auto) 0.5 (0.0-0.8) K/uL Eos # (Auto) 0.1 (0.0-0.7) K/uL Baso # (Auto) 0.0 (0.0-0.1) K/uL Nucleated RBC % 0.0 /100WBC Nucleated RBCs # 0 K/uL INR 1.79 APTT 35.7 H (18.6-31.3) SEC Meds: Medications Discontinued Medications Generic Name Dose Route Start Last Admin Trade Name John PRN Reason Stop Dose Admin Phytonadione 5 mg 03/31/20 17:03 Mephyton PO 03/31/20 17:04 ONETIME ONE - Re-Assessments/Exams Free Text/Narrative Re-Assessment/Exam: 03/31/20 16:28 Dr. Dennison came to the ER and interrogated device, states that explant was 03/27/2020, leads looked to function appropriately. There were no defibrillator events despite intermittent Afib during the past month. 03/31/20 16:[address] Maco Crenshaw, given that he had no symptoms, Dr. Crenshaw would like to see him tomorrow at 10 AM in his office to change the battery. He recommends giving him vitamin K 5 mg PO one-time dose here, keep n.p.o. after midnight. 03/31/20 17: After vitamin K 5mg PO in the ER, he is currently stable for discharge. I performed a repeat exam and did not appreciate new abnormal findings. Patient exhibits normal vital signs and has a normal gait on road test. I advised the patient to return to the ER for reevaluation if symptoms worsened, including fever, worsening pain, or any other worrisome symptoms. I instructed the patient to follow up with Dr. Crenshaw tomorrow at 10am MEDICAL DECISION MAKING: I reviewed the patients past medical records, lab and radiographic findings. I discussed the case with the patient. My differential diagnosis included: AICD malfunction, lead displacement, battery malfunction. After interrogating his [employer] device, it was found that the explant on 03/27/2020 and needs battery replacement. The 3 leads were examined and did not show any issues. There were no ICD discharges. With these results, I discussed with Dr. Maco Crenshaw, who recommends discharging patient and seeing him tomorrow for battery replacement. He does not think patient needs to be emergently transferred to [facility] at [place] because he was asymptomatic and there were no ICD discharges. Patient remains hemodynamically stable and smiling and joking in no distress throughout ED visit. I gave the patient and his strict return precautions for any presyncopal or arrhythmia or palpitation or chest discomfort. Departure - Departure Time of Disposition: 17:14 Disposition: Home, Self-Care 01 Condition: Good Clinical Impression: ICD (implantable cardioverter-defibrillator) battery depletion Instructions: Atrial Fibrillation, [id number], Cardioverter Defibrillator Implantation, Care After Referrals: Maco Crenshaw MD [Ordering Only Provider] - 04/01/20 10:00 am Forms: ED Department Discharge Additional Instructions: The need for follow-up, as well as the timing and circumstances, are variable depending upon the specifics of your emergency department visit. If you don't have a primary care physician on staff, we will provide you with a referral. We always advise you to contact your personal physician following an emergency department visit to inform them of the circumstance of the visit and for follow-up with them and/or the need for any referrals to a consulting specialist. The emergency department will also refer you to a specialist when appropriate. This referral assures that you have the opportunity for follow-up care with a specialist. All of these measure are taken in an effort to provide you with optimal care, which includes your follow-up. Under all circumstances we always encourage you to contact your private physician who remains a resource for coordinating your care. When calling for follow-up care, please make the office aware that this follow-up is from your recent emergency room visit. If for any reason you are refused follow-up, please contact the [facility] Emergency Department at and asked to speak to the emergency department charge nurse. If you do not have a primary care doctor, please follow up with the clinics below within 3-5 days. [facility] - [facility] [address] [place] [address] [id number] [address] [address] Sepsis Event Note (ED) - Focused Exam Vital Signs: Vital Signs Temp Pulse Resp BP Pulse Ox 03/31/20 14:50 97.2 F 71 16 146/91 H 97 - My Orders Last 24 Hours: My Active Orders 03/31/20 14:18 Communication Order [RC] STAT EKG 12 Lead [EKG Documentation Completion] [RC] STAT 03/31/20 14:24 Cardiac Monitoring [RC] . DIRECTED 03/31/20 16:30 COMPREHENSIVE METABOLIC PN,CMP [CHEM] Stat TROPONIN I [CHEM] Stat - Assessment/Plan Last 24 Hours: My Active Orders 03/31/20 14:18 Communication Order [RC] STAT EKG 12 Lead [EKG Documentation Completion] [RC] STAT 03/31/20 14:24 Cardiac Monitoring [RC] . DIRECTED 03/31/20 16:30 COMPREHENSIVE METABOLIC PN,CMP [CHEM] Stat TROPONIN I [CHEM] Stat
--- NOTE | 2020-03-31 14:58 | CR ---
INDICATION: AICD malfunction TECHNIQUE: Chest 2 views. COMPARISON: 10/30/2018 FINDINGS: Cardiovascular and mediastinum: Heart size and vasculature are normal in caliber and appearance. Mediastinum is within normal limits. Left-sided transvenous pacer device. Lungs and pleural spaces: Hyperinflation could lungs are clear. No sign of infiltrate or mass. No sign of pleural effusion. No pneumothorax. Bones and soft tissues: No significant findings. IMPRESSION: No acute pulmonary or cardiac abnormalities. Hyperinflation. Dictated by Constantine Conrad MD @ Mar 31 2020 2:56PM Signed by Dr. Constantine Conrad @ Mar 31 2020 2:57PM
[2020-03-31] MEDS ORDERED: Phytonadione 5 MG Tab PO ONE (17:03)
[2020-03-31 17:18] LABS: BLOOD UREA NITROGEN,BUN 18 mg/dL (7.0-18.0); CARBON DIOXIDE,CO2 30.5 mmol/L (21.0-32.0); CHLORIDE,CL 100 mmol/L (98-107); GLUCOSE RANDOM 99 mg/dL (74-106); POTASSIUM,K 4.5 mmol/L (3.5-5.1); SODIUM,NA 138 mmol/L (136-148)
[2020-03-31 17:40] VITALS: BP 147/81; PULSE 70
--- NOTE | 2020-04-02 09:50 | PCM.PRNOTE ---
- Free Text/Narrative Note: Device interrogation last interrogation 10/02/2018 DOS 03/31/2020 In[employer]ium Model [employer] 100-D [id number] Mode DDDR LRL 70 bpm % paced BiV 100% Ap 94% intrinsic rhythm SR Battery life at explant 03/27/2020 Atrial lead sensin.4 capture threshold: 0.4V@0.4ms impedance: 669 R Ventricular lead sensing: paced capture threshold: 0.7V@0.4ms impedance: 572 L Ventricular lead sensing: paced capture threshold: 0.6V@0.6ms impedance: 678 Shock [id number] episode: PAfib NSVT no ICD therapies, noted ICD therapy turned off. Imp Normally functioning [employer] Plan ER physician will discuss with idea man in [facility] regarding gen change.
== END 2020-03-31 17:43 | disposition home or self-care (01) ==
LOC: MW.ED 14:04
DX: T82.191A Other mechanical complication of cardiac pulse generator (battery), initial encounter (principal); I48.91 Unspecified atrial fibrillation; E78.00 Pure hypercholesterolemia, unspecified; I10 Essential (primary) hypertension; J44.9 Chronic obstructive pulmonary disease, unspecified; Z79.82 Long term (current) use of aspirin; Z79.01 Long term (current) use of anticoagulants; Z79.899 Other long term (current) drug therapy
CPT/HCPCS: 36415; 71046; 80053; 84484; 85025; 85610; 85730; 93005; 99284; J3430; 93010; 99285

== ENCOUNTER 2022-12-30 09:14 | Emergency (ER) | payer MEDICARE ==
[2022-12-30] MEDS ORDERED: Sodium Chloride 0.9% 10 ML Syringe FLUSH PRN (09:27)
[2022-12-30] MEDS ORDERED: Sodium Chloride 0.9% 2.5 ML Syringe FLUSH PRN (09:27)
[2022-12-30] MEDS ORDERED: Ondansetron 4 MG/2 ML SDV IVPUSH ONE (09:40)
[2022-12-30] MEDS ORDERED: Morphine 2 MG/ML SYRINGE IVPUSH ONE (09:40)
[2022-12-30] MEDS ORDERED: Naloxone 0.4 MG/ML SDV IVPUSH PRN (09:40)
[2022-12-30 09:44] LABS: BASOPHILS ABSOLUTE AUTO 0.02 K/uL (0.00-0.20); BASOPHILS PERCENT AUTO 0.2 % (0.0-1.0); EOSINOPHILS ABSOLUTE AUTO 0.03 K/uL (0.00-0.45); EOSINOPHILS PERCENT AUTO 0.3 % (0.0-6.0); HEMATOCRIT 42.2 % (42.0-52.0); HEMOGLOBIN 14.6 g/dL (14.0-18.0); IMMATURE GRAN ABSOLUTE AUTO 0.03 K/uL (0.00-0.05); IMMATURE GRAN PERCENT AUTO 0.3 % (0.0-0.4); LYMPHOCYTES ABSOLUTE AUTO 1.64 K/uL (1.00-4.80); LYMPHOCYTES PERCENT AUTO 17.9 % (24.0-44.0); MEAN CORPUSCULAR HEMOGLOBIN 31.5 pg (28.0-32.0); MEAN CORPUSCULAR HGB CONC 34.6 g/dL (32.0-36.0); MEAN CORPUSCULAR VOLUME 91.1 fL (83.0-99.0); MEAN PLATELET VOLUME 9.3 fL (9.4-12.4); MONOCYTES ABSOLUTE AUTO 0.83 K/uL (0.00-0.80); MONOCYTES PERCENT AUTO 9.1 % (0.0-8.0); NEUTROPHILS PERCENT AUTO 72.2 % (41.0-71.0); PLATELET COUNT,PLT 187 K/uL (150-400); RED BLOOD CELL COUNT 4.63 M/uL (4.52-5.90); WHITE BLOOD CELL COUNT,WBC 9.15 K/uL (3.9-11.3)
[2022-12-30 09:58] LABS: INR 4.33 (0.86-1.11)
[2022-12-30 09:59] LABS: CALCIUM 9.9 mg/dL (8.5-10.1); CARBON DIOXIDE,CO2 29.6 mmol/L (21.0-32.0); CREATININE 0.9 mg/dL (0.8-1.3); EST CRCL DRUG DOSING (CG) 72.48 mL/min; POTASSIUM,K 4.4 mmol/L (3.5-5.1)
[2022-12-30] MEDS ORDERED: Lidocaine 4% 1 each Patch TOP STA (10:46)
[2022-12-30] MEDS ORDERED: Acetaminophen/HYDROcodone 325-5 MG Tab PO ONE (11:19)
[2022-12-30 12:48] VITALS: BP 157/87; PULSE 74
== END 2022-12-30 12:46 | disposition home or self-care (01) ==
LOC: MW.ED 09:14
DX: S50.11XA Contusion of right forearm, initial encounter (principal); R79.1 Abnormal coagulation profile; I48.91 Unspecified atrial fibrillation; I10 Essential (primary) hypertension; E78.00 Pure hypercholesterolemia, unspecified; J44.9 Chronic obstructive pulmonary disease, unspecified; Z79.899 Other long term (current) drug therapy; Z79.82 Long term (current) use of aspirin; Z79.01 Long term (current) use of anticoagulants; W22.8XXA Striking against or struck by other objects, initial encounter
CPT/HCPCS: 36415; 73080; 73090; 76881; 80048; 85025; 85610; 96374; 96375; 99283; A9270; J2270; J2405; J3490; 99284

== ENCOUNTER 2023-01-01 12:37 | Emergency (ER) | payer MEDICARE ==
[2023-01-01 12:56] VITALS: BP 111/67
[2023-01-01 13:29] VITALS: PULSE 72
== END 2023-01-01 13:22 | disposition home or self-care (01) ==
LOC: MW.ED 12:37
DX: M79.631 Pain in right forearm (principal); Z76.0 Encounter for issue of repeat prescription; I48.91 Unspecified atrial fibrillation; E78.00 Pure hypercholesterolemia, unspecified; I10 Essential (primary) hypertension; I25.2 Old myocardial infarction; J44.9 Chronic obstructive pulmonary disease, unspecified; F17.210 Nicotine dependence, cigarettes, uncomplicated; Z95.0 Presence of cardiac pacemaker; Z79.01 Long term (current) use of anticoagulants; Z79.82 Long term (current) use of aspirin; Z79.899 Other long term (current) drug therapy
CPT/HCPCS: 99283

== ENCOUNTER 2025-02-05 20:58 | Emergency (ER) | payer MEDICARE ==
[2025-02-05] MEDS ORDERED: Sodium Chloride 0.9% 10 ML Syringe FLUSH PRN (21:16)
[2025-02-05] MEDS ORDERED: Sodium Chloride 0.9% 2.5 ML Syringe FLUSH PRN (21:16)
[2025-02-05 21:36] LABS: BASOPHILS ABSOLUTE AUTO 0.03 K/uL (0.00-0.20); BASOPHILS PERCENT AUTO 0.3 % (0.0-1.0); EOSINOPHILS ABSOLUTE AUTO 0.04 K/uL (0.00-0.45); EOSINOPHILS PERCENT AUTO 0.4 % (0.0-6.0); IMMATURE GRAN ABSOLUTE AUTO 0.04 K/uL (0.00-0.05); IMMATURE GRAN PERCENT AUTO 0.4 % (0.0-0.4); LYMPHOCYTES ABSOLUTE AUTO 1.31 K/uL (1.00-4.80); LYMPHOCYTES PERCENT AUTO 13.5 % (24.0-44.0); MEAN PLATELET VOLUME 9.5 fL (9.4-12.4); MONOCYTES ABSOLUTE AUTO 0.97 K/uL (0.00-0.80); MONOCYTES PERCENT AUTO 10.0 % (0.0-8.0); NEUTROPHILS ABSOLUTE AUTO 7.33 K/uL (1.80-7.70); NEUTROPHILS PERCENT AUTO 75.4 % (41.0-71.0); NRBC ABSOLUTE 0.00 K/uL (0.00-0.02); NRBC PERCENT 0.0 /100WBC (0.0-0.2); PLATELET COUNT,PLT 204 K/uL (150-400); RED BLOOD CELL COUNT 4.22 M/uL (4.52-5.90); WHITE BLOOD CELL COUNT,WBC 9.72 K/uL (3.9-11.3)
[2025-02-05 21:50] LABS: INR 2.22 (0.86-1.11); PTT,PARTIAL THROMBOPLSTIN TIME 38.4 SEC (23.9-30.7)
[2025-02-05 22:01] LABS: A/G RATIO 1.1 (0.9-1.6); ALANINE AMINOTRANSFERASE,ALT 18.0 IU/L (14-63); ASPARTATE AMNIOTRANSFERASE,AST 19.0 IU/L (15-37); BILIRUBIN TOTAL 0.7 mg/dL (0.2-1.0); BLOOD UREA NITROGEN,BUN 15.0 mg/dL (7.0-18.0); CARBON DIOXIDE,CO2 31.9 mmol/L (21.0-32.0); CHLORIDE,CL 99.0 mmol/L (98-107); CREATININE 1.0 mg/dL (0.8-1.3); EST CRCL DRUG DOSING (CG) 65.17 mL/min; GLUCOSE RANDOM 134.0 mg/dL (74-106); POTASSIUM,K 4.4 mmol/L (3.5-5.1); PROTEIN TOTAL,TP 6.6 g/dL (6.4-8.2); SODIUM,NA 135.0 mmol/L (136-148)
[2025-02-05 22:05] LABS: ESTIMATED GFR 80.0 mL/min (>60)
[2025-02-05] MEDS: Iopamidol 755 MG/ML 500 ML Multipack Bottle IVPUSH STA (22:26)
[2025-02-05 23:34] VITALS: BP 122/68; PULSE 70
== END 2025-02-05 23:30 | disposition home or self-care (01) ==
LOC: MW.ED 20:58
DX: S22.31XA Fracture of one rib, right side, initial encounter for closed fracture (principal); I10 Essential (primary) hypertension; E78.00 Pure hypercholesterolemia, unspecified; Z79.82 Long term (current) use of aspirin; Z79.01 Long term (current) use of anticoagulants; Z79.899 Other long term (current) drug therapy; Z90.49 Acquired absence of other specified parts of digestive tract; W00.0XXA Fall on same level due to ice and snow, initial encounter
CPT/HCPCS: 36415; 71260; 74177; 80053; 83690; 85025; 85610; 85730; 93005; 99284; A9270; Q9967; 93010